=== PATIENT | female | born 1945 | race Caucasian/White ===

== ENCOUNTER → 2020-09-08 | Outpatient (CLI) | payer MEDICARE ==
--- NOTE | 2020-09-08 12:53 | RADIOLOGY REPORT (SQ) ---
EXAM DESCRIPTION: FOOT RIGHT COMPLETE IMAGES COMPLETED DATE/TIME: 09/08/2020 11:47 am REASON FOR STUDY: M84.374A STRESS FRACTURE, RIGHT FOOT, INITIAL ENCOUNTER FOR FRACTURE M84.374A STR ESS FRACTURE, RIGHT FOOT, INITIAL ENCOUNTER FOR COMPARISON: None. NUMBER OF VIEWS: Three views. TECHNIQUE: AP, lateral and oblique radiographic images acquired of the right foot. LIMITATIONS: None. FINDINGS: MINERALIZATION: Osteopenia. BONES: No acute fracture or dislocation. No worrisome bone lesions. JOINTS: No effusions. SOFT TISSUES: No soft tissue swelling. No foreign body. OTHER: No other significant finding. IMPRESSION: Osteopenia. No acute osseous finding. TECHNICAL DOCUMENTATION: JOB ID: [id number] 2010 [employer]- All Rights Reserved Reading location - IP/workstation name: [email or web address]
== END ==
LOC: RAD 11:32
PROVIDERS: ATTEND Podiatrist Foot & Ankle Surgery
DX: M85.871 Other specified disorders of bone density and structure, right ankle and foot (principal); M84.374A Stress fracture, right foot, initial encounter for fracture

== ENCOUNTER 2020-11-03 11:14 | Emergency (ER) | payer MEDICARE, MEDICAID ==
--- NOTE | 2020-11-03 13:21 | ER Document Report ---
HPI - HPI Time Seen by Provider: 11/03/20 12:46 Notes: 74-year-old female presents to the emergency room today for frequency, urgency dysuria which started 2 days ago. Pain is 3 out of 5, burning with urination. She did place herself on AZO without relief. Patient states she did test positi ve for Covid on 10/29/2020. Denies any lower back pain. Reports it feels similar to her previous UTIs. Eating and drinking without any issues. Denies fevers, chills, chest pain,palpitations, shortness of breath, dyspnea, nausea, vomiting, diarrhea, abdominal pain, hematuria,blurred vision, double vision, loss of vision, speech changes, LH, dizziness, syncope, headaches, wheezing, ST, URI, neck pain, weakness, bowel or bladder dysfunction, saddle anesthesia, numbness or tingling in bilateral upper or lower extremities equally, muscle paralysis, weakness in bilateral upper or lower extremities equally or rash. Past Medical History - General Information source: Patient - Social History Smoking Status: Unknown if Ever Smoked Family History: Reviewed & Not Pertinent Vertical Provider Document - CONSTITUTIONAL Agree With Documented VS: Yes Exam Limitations: No Limitations General Appearance: WD/WN Notes: MEDICATIONS: I agree with the patient medications as charted by the RN. ALLERGIES: I agree with the allergies as charted by the RN. PAST MEDICAL HISTORY/PAST SURGICAL HISTORY: Reviewed and agree as charted by RN. SOCIAL HISTORY: Reviewed and agree as charted by RN. FAMILY HISTORY: No significant familial comorbid conditions directly related to patient complaint EXAM: Reviewed vital signs as charted by RN. PHYSICAL EXAMINATION: reviewed vital signs by RN GENERAL: Well-appearing, well-nourished and in no acute distress. HEAD: Atraumatic, normocephalic. EYES: Pupils equal round and reactive to light, extraocular movements intact, conjunctiva are normal. ENT: Nares patent, oropharynx clear without exudates. Moist mucous membranes. NECK: Normal range of motion, supple without lymphadenopathy LUNGS: Breath sounds clear to auscultation bilaterally and equal. No wheezes rales or rhonchi. HEART: Regular rate and rhythm without murmurs ABDOMEN: Soft, nontender, suprapubic tenderness nondistended abdomen. No guarding, no rebound. No masses appreciated. No CVA tenderness appreciated bilaterally Female : deferred Musculoskeletal: Normal range of motion, no pitting or edema. No cyanosis. NEUROLOGICAL: Cranial nerves grossly intact. Normal speech, normal gait. Normal sensory, motor exams PSYCH: Normal mood, normal affect. SKIN: Warm, Dry, normal turgor, no rashes or lesions noted. Course - Re-evaluation Re-evalutation: 11/03/20 12:54 Afebrile vital stable no distress. Nurses notes reviewed. Urinalysis shows - Vital Signs Vital signs: Temp Pulse Resp BP Pulse Ox 98.6 F 96 16 147/81 H 97 11/03/20 11:22 11/03/20 11:22 11/03/20 11:22 11/03/20 11:22 11/03/20 11:22 Discharge - Discharge Clinical Impression: UTI (urinary tract infection) Condition: Stable Disposition: HOME, SELF-CARE Instructions: Urinary Tract Infection ([facility]), Cephalexin ([facility]) Referrals: TEZ SMITH DPM [Primary Care Provider] - Follow up in 3-5 days
[2020-11-03 15:27] LABS: APPEARANCE,URINE SLIGHTLY-CLOUDY; BILIRUBIN,URINE NEGATIVE (NEGATIVE); GLUCOSE, URINE NEGATIVE (NEGATIVE); KETONES,URINE TRACE mg/dL (NEGATIVE); LEUKOCYTE ESTERASE,URINE SMALL (NEGATIVE); NITRITE,URINE POSITIVE (NEGATIVE); PROTEIN,URINE >=500 mg/dL (NEGATIVE)
[2020-11-03 15:29] LABS: COLOR,URINE ORANGE
[2020-11-03] MEDS ORDERED: NORMAL SALINE 1000 ML 1,000 ML IV ONE (15:42)
--- NOTE | 2020-11-03 15:46 | ER Document Report ---
ED Medical Screen (RME) - General Chief Complaint: Urinary Problem Stated Complaint: URINARY PROBLEM Time Seen by Provider: 11/03/20 12:46 Primary Care Provider: TEZ SMITH DPM [Primary Care Provider] - Follow up in 3-5 days - [facility] Notes: 11/03/20 15:39 74-year-old female presents to the emergency room today for frequency, urgency dysuria which started 2 days ago. Pain is 3 out of 5, burning with urination. Tried AZO without relief. she did place herself on AZO without relief. Patient states she did test positive for Covid on 10/29/2020. reports some lower back pain. Reports it feels similar to her previous UTIs. Eating and drinking without any issues. I have greeted and performed a rapid initial assessment of this patient. A comprehensive ED assessment and evaluation of the patient, analysis of test results and completion of the medical decision making process will be conducted by additional ED providers. PHYSICAL EXAMINATION: GENERAL: Well-appearing, well-nourished and in no acute distress. CV: s1, s2 regular LUNGS: No respiratory distress abd: no abd tenderness, no cva tenderness Due to patient's urinalysis showing proteinuria well over 500, ketones, positive nitrates and small leukesterase, patient likely has a pyelonephritis and needs further blood work done and possible IV abx. Patient will be seen in the back by a main side provider The patient was evaluated during a global COVID-19 pandemic and that diagnosis was suspected/considered upon their initial presentation. Their evaluation, treatment and testing was consistent with current guidelines for patients who present with complaints or symptoms and may be related to COVID-19. 11/03/20 15:46 - Related Data Allergies/Adverse Reactions: codeine Allergy (Verified 11/03/20 12:46) Home Medications: omeprazole,azo, vitamin c, b12,vitamin d Past Medical History - Social History Chew tobacco use (# tins/day): No Frequency of alcohol use: None Drug Abuse: None Past Surgical History: Reports: Hx Section Physical Exam - Vital signs Vitals: Temp Pulse Resp BP Pulse Ox 98.6 F 96 16 147/81 H 97 11/03/20 11:22 11/03/20 11:22 11/03/20 11:22 11/03/20 11:22 12/24/20 11:22 Course - Vital Signs Vital signs: Temp Pulse Resp BP Pulse Ox 98.6 F 96 16 147/81 H 97 11/03/20 11:22 11/03/20 11:22 11/03/20 11:22 11/03/20 11:22 11/03/20 11:22 - Laboratory Results Laboratory Results Interpreted: 11/03/20 13:14 Urine Protein >=500 H Urine Ketones TRACE H Urine Nitrite POSITIVE H Urine Urobilinogen 4.0 H Ur Leukocyte Esterase SMALL H Urine Ascorbic Acid 40 H Doctor's Discharge - Discharge Clinical Impression: UTI (urinary tract infection) Condition: Stable Disposition: HOME, SELF-CARE Instructions: Cephalexin ([facility]), Urinary Tract Infection ([facility]) Referrals: TEZ SMITH DPM [Primary Care Provider] - Follow up in 3-5 days
[2020-11-03 16:27] VITALS: BP 132/66
== END 2020-11-03 16:37 | disposition home or self-care (01) ==
LOC: ER 11:14
DX: N39.0 Urinary tract infection, site not specified (principal); R39.198 Other difficulties with micturition; R30.0 Dysuria; M54.5 Low back pain; R35.0 Frequency of micturition; R39.15 Urgency of urination; Z20.828 Contact with and (suspected) exposure to other viral communicable diseases; Z88.8 Allergy status to other drugs, medicaments and biological substances; Z79.899 Other long term (current) drug therapy
CPT/HCPCS: 81001; 87086; 87088; 87186; 99283